=== PATIENT | female | born 1975 | race Caucasian/White ===

== ENCOUNTER 2020-04-06 18:59 | Emergency (ER) | payer MEDICAID, OTHER ==
[~2020-04-06] VITALS: Ht 167.6 cm; Wt 104.3 kg
[2020-04-06 19:18] VITALS: BP 135/91
[2020-04-06] MEDS ORDERED: HYDROcodone-ACET 7.5/325MG TAB PO ONE (19:45)
[2020-04-06] MEDS ORDERED: BACITRACIN TOP OINT 1 UD PKG TOP ONE ×2 (21:00→21:15)
[2020-04-06] MEDS ORDERED: TETANUS-DIPTH-ACEL PERTUSSIS 0.5ML SYR Tdap IM ONE (21:30)
== END 2020-04-06 22:21 | disposition home or self-care (01) ==
LOC: ER 19:01
DX: S90.511A Abrasion, right ankle, initial encounter (principal); S01.81XA Laceration without foreign body of other part of head, initial encounter; Z90.49 Acquired absence of other specified parts of digestive tract; W17.89XA Other fall from one level to another, initial encounter; Y93.89 Activity, other specified; Y92.89 Other specified places as the place of occurrence of the external cause; Y99.8 Other external cause status
CPT/HCPCS: 12011; 70450; 70486; 72125; 73560; 90471; 90715

== ENCOUNTER 2020-04-14 11:42 | Emergency (ER) | payer MEDICAID ==
[~2020-04-14] VITALS: Ht 167.6 cm; Wt 99.8 kg
[2020-04-14 11:57] VITALS: BP 107/55
[2020-04-14] MEDS ORDERED: KETOROLAC TROMETH 60MG/2ML VIAL IM ONE (13:45)
== END 2020-04-14 14:06 | disposition home or self-care (01) ==
LOC: ER 11:42
DX: S93.401D Sprain of unspecified ligament of right ankle, subsequent encounter (principal); S90.31XD Contusion of right foot, subsequent encounter; W19.XXXD Unspecified fall, subsequent encounter
CPT/HCPCS: 73610; 73630; 96372; 99284; J1885